=== PATIENT | female | born 1985 | race Caucasian/White ===

== ENCOUNTER 2017-05-17 12:54 | Emergency (ER) | payer OTHER ==
[2017-05-17 13:02] VITALS: RESP 20; TEMP 98.3
[2017-05-17] MEDS ORDERED: RX INFO: IV CONTRAST WAS GIVEN 1 EACH MISC MISCELLANE PRN ×2 (13:13→13:29)
[2017-05-17 13:36] LABS: Basophils % (A) 0 %; Eosinophils # (A) 0.2 k/uL (0-0.7); Eosinophils % (A) 4 %; HCT 43.3 % (34.0-46.0); HGB 13.8 gm/dL (11.4-16.0); Lymphocytes # (A) 1.6 k/uL (1.0-4.8); Lymphocytes % (A) 30 %; MCH 29.4 pg (25.0-35.0); MCHC 31.9 g/dL (31.0-37.0); MCV 92.1 fL (80.0-100.0); Mean Platelet Volume 7.4; Monocytes # (A) 0.4 k/uL (0-1.0); Monocytes % (A) 7 %; Neutrophils # (A) 3.2 k/uL (1.3-7.7); Neutrophils % (A) 58 %; Platelet Count 369 k/uL (150-450); RBC 4.71 m/uL (3.80-5.40); RDW 12.7 % (11.5-15.5); WBC 5.5 k/uL (3.8-10.6)
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
[2017-05-17 13:46] LABS: Granular Casts,Urine 29 /lpf (0); Mucus,Urine Occasional /hpf; RBC,Urine >182 /hpf (0-5); Squamous Epithelial Cell,Urine 7 /hpf (0-4); WBC,Urine 159 /hpf (0-5)
[2017-05-17 13:49] LABS: Appearance,Urine Bloody (Clear); Color,Urine Dark Red
[2017-05-17 13:53] LABS: Anion Gap 11 mmol/L; Blood Urea Nitrogen 18 mg/dL (7-17); Calcium 9.8 mg/dL (8.4-10.2); Carbon Dioxide 27 mmol/L (22-30); Chloride 102 mmol/L (98-107); Glucose 94 mg/dL (74-99); Potassium 4.9 mmol/L (3.5-5.1); Sodium 140 mmol/L (137-145)
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
[2017-05-17 15:05] VITALS: BP 122/55; PULSE 89
== END 2017-05-17 15:04 | disposition home or self-care (01) ==
LOC: EC 12:54
DX: S20.219A Contusion of unspecified front wall of thorax, initial encounter (principal); R10.9 Unspecified abdominal pain; R31.0 Gross hematuria; S40.212A Abrasion of left shoulder, initial encounter; F17.200 Nicotine dependence, unspecified, uncomplicated; V59.40XA Driver of pick-up truck or van injured in collision with unspecified motor vehicles in traffic accident, initial encounter; Y92.410 Unspecified street and highway as the place of occurrence of the external cause
CPT/HCPCS: 99284; 36415; 80048; 85025; 81001; 81025; 87086; 87077; 87186; 71260; 74177; Q9967

== ENCOUNTER 2021-05-27 05:28 | Inpatient (IN) | payer OTHER ==
[2021-05-27] MEDS ORDERED: LIDOCAINE 1% (PF) 10 MG/ML (30 ML SDV) SQ PRN (05:58)
[2021-05-27] MEDS ORDERED: OXYTOCIN 10 UNIT/ML 1 ML VIAL IM PRN (05:58)
[2021-05-27] MEDS ORDERED: TERBUTALINE 1 MG/ML VIAL SQ PRN (05:58)
[2021-05-27] MEDS ORDERED: CARBOPROST TROMETHAMINE 250 MCG/ML 1 ML AMP IM PRN (05:58)
[2021-05-27] MEDS ORDERED: METHYLERGONOVINE 0.2 MG/ML 1 ML AMP IM PRN (05:58)
[2021-05-27] MEDS ORDERED: AMPICILLIN 2,000 MG in SODIUM CHLORIDE 0.9% 100 ML IVPB ONE (06:00)
[2021-05-27] MEDS ORDERED: LACTATED RINGERS 1,000 ML IV SCH (06:00)
[2021-05-27] MEDS ORDERED: OXYTOCIN 30 UNITS/500 ML NS 30 UNIT in SALINE 1 500ML.BAG IV SCH ×2 (06:00→07:30)
--- NOTE | 2021-05-27 06:29 | P.HPOB ---
History of Present Illness H&P Date: 05/27/21 Chief Complaint: Contractions this patient is a 36-year-old 2 para 1 female estimated date of confinement 05/28/2021 estimated gestational age 39-6/7 weeks who presents to our hospital with complaints of contractions. Patient's care is with Dr. Varela and these records are unavailable to me. Patient was to deliver [facility] however apparently she called that facility and they said they do not have staph to deliver her there. She therefore presents here for evaluation. Patient states that she did receive some type of genetic counseling in the due to her age. In speaking her it sounds like she may have had some nonstress testing done. Most recent ultrasound she states was last week and she said the baby was around 7 pounds. She has a previous vaginal delivery with her first . She denies related complications. Review of Systems Genitourinary: Reports Menstruation: Reports amenorrhea Past Medical History Past Medical History: No Reported History History of Any Multi-Drug Resistant Organisms: None Reported Past Surgical History: No Surgical Hx Reported Additional Past Surgical History / Comment(s): Benign mass removed from neck Past Anesthesia/Blood Transfusion Reactions: No Reported Reaction Past Psychological History: No Psychological Hx Reported Smoking Status: Former smoker Past Alcohol Use History: None Reported Past Drug Use History: Marijuana Additional Drug Use History / Comment(s): Pt reports using marijuana in early - Past Family History Mother History Unknown: Yes Family Medical History: Diabetes Mellitus Medications and Allergies Home Medications Medication Instructions Recorded Confirmed Type Pnv,Calcium 72/Iron/Folic Acid 1 tab PO DAILY 05/27/21 05/27/21 History [ Plus Tablet] Allergies Allergy/AdvReac Type Severity Reaction Status Date / Time No Known Allergies Allergy Verified 05/17/17 13:02 Exam Vital Signs Temp Pulse Resp BP Pulse Ox 05/27/21 05:58 97.2 F L 75 16 135/77 100 Intake and Output 05/26/21 05/26/21 05/27/21 14:59 22:59 06:59 Other: Weight 90.265 kg - OBG Physical Exam Abdomen: bowel sounds normal, no diffuse tenderness, no bruit present, no guarding noted, no hepatomegaly, no splenomegaly, no mass Vulva: both: normal Vagina: normal moisture, no discharge Cervix: no lesion (Cervix is complete bulging bag.), no discharge Uterus: enlarged Assessment and Plan Assessment: This is a 36-year-old 2 para 1 female 39-6/7 weeks gestation active labor with no records here. At this point delivery is eminent so plan is antibiotic prophylaxis for unknown group B strep status and anticipate vaginal delivery patient will need a toxicology screen due to history of marijuana use and social science instructor consultation. (1) 40 weeks gestation of Current Visit: Yes Status: Acute Code(s): Z3A.40 - 40 WEEKS GESTATION OF SNOMED Code(s): 38395631 (2) Normal labor Current Visit: Yes Status: Acute Code(s): O80 - ENCOUNTER FOR FULL-TERM UNCOMPLICATED DELIVERY; Z37.9 - OUTCOME OF DELIVERY, UNSPECIFIED SNOMED Code(s): 78548790 (3) Elderly multigravida Current Visit: Yes Status: Acute Code(s): O09.529 - SUPERVISION OF ELDERLY MULTIGRAVIDA, UNSPECIFIED TRIMESTER SNOMED Code(s): 509760105 (4) Substance abuse affecting in first trimester, antepartum Current Visit: Yes Status: Acute Code(s): O99.321 - DRUG USE COMPLICATING , FIRST TRIMESTER SNOMED Code(s): 18769429
--- NOTE | 2021-05-27 06:36 | P.PN ---
Progress Note - Text Progress Note Date: 05/27/21 Review of her records which are now available show that her blood type is A positive, hepatitis B was negative, RPR is nonreactive, rubella is immune, Glucola was 118, HIV is nonreactive, group B strep was negative
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
[2021-05-27] MEDS ORDERED: diphenhydrAMINE 25 MG CAP PO PRN (07:24)
[2021-05-27] MEDS ORDERED: diphenhydrAMINE 50 MG/ML 1 ML VIAL IVP PRN (07:24)
[2021-05-27] MEDS ORDERED: BENZOCAINE/MENTHOL SPRAY 1 GM/SPRAY AEROSOL TOPICAL PRN (07:24)
[2021-05-27] MEDS ORDERED: LANOLIN CREAM 5 GM TUBE TOPICAL PRN (07:24)
[2021-05-27] MEDS ORDERED: SIMETHICONE 80 MG CHEWABLE PO PRN (07:24)
[2021-05-27] MEDS ORDERED: ZOLPIDEM 5 MG TAB PO PRN (07:24)
[2021-05-27] MEDS ORDERED: bisacodyL 10 MG SUPP RECTAL PRN (07:24)
[2021-05-27] MEDS ORDERED: HYDROCORTISONE 2.5% RECTAL CREAM 30 GM TUBE RECTAL PRN (07:24)
[2021-05-27] MEDS: IBUPROFEN 600 MG TAB PO PRN ×2 (08:11→15:27)
--- NOTE | 2021-05-27 08:48 | P.MSEPDOC ---
Presenting Problems - Arrival Data Date of Arrival on Unit: 05/27/21 Time of Arrival on Unit: 00:54 Mode of Transport: Wheelchair - Complaint OB-Reason for Admission/Chief Complaint: Possible Onset of Labor, Rule Out SROM Comment: Pt presents to triage with c/o contx that started around 0400 and are approx 6 min apart. Pt states she had a loose stool around 0430 and believes her water "may have broke" while on the toilet. Pt unsure whether fluid was clear Medical History - Information : 4 Para: 1 Term: 1 : 0 Abortions: Spontaneous or Elective: 2 Number of Living Children: 1 - Gestational Age Gestational Age by WILMAN (wks/days): 39 Weeks and 6 Days - History Complications: Smoker Comment: Pt reports marijuana use in early Review of Systems - Review of Systems Constitutional: No problems Breast: No problems ENT: No problems Cardiovascular: No problems Respiratory: No problems Gastrointestinal: No problems Genitourinary: No problems Musculoskeletal: No problems Neurological: No problems Skin: No problems Vital Signs - Temperature Temperature: 97.1 F Temperature Source: Temporal Artery Scan - Pulse Pulse Oximetery Pulse Rate: 68 Pulse Assessment Method: Automatic Cuff - Respirations Respiratory Rate: 16 Oxygen Delivery Method: Room Air - Blood Pressure Right Arm Blood Pressure: 120/61 Blood Pressure Mean: 80 Blood Pressure Source: Automatic Cuff Medical Screen Scoring - Cervical Exam Dilation (cm): 7.5 Effacement (%): 100 Station: -1 Membranes: Intact - Uterine Contractions Frequency From (mins): 1 Frequency To (mins): 4 Duration From (seconds): 50 Duration To (seconds): 70 Intensity: Strong Resting: Soft to palpation - Assessment - Baby A Baseline FHR: 140 Heart Rate - NICHD Category: Category I (Normal) Physician Notification - Physician Notified Physician Notified Date: 05/27/21 Physician Notified Time: 05:48 Physician: Timothy Johnson New Order Received: Yes - Notification Comment Comment: Dr. Johnson phoned into dept. Update provided re: Pt DOM receiving care with Dr. Christensen at [facility], presents to triage with c/o contx approx 6 min apart, hx of marijuana use early in but denies use at this time, SVE, FHR, contx pattern, small amount of vaginal bleeding noted with exam, GBS unknown and negative amnisure result. Orders received to admit pt. Dr. Johnson states he will be into dept shortly Maternal Triage Index - Maternal Triage Index Presenting for scheduled procedure w/no complaint: No - Stat/Priority 1 Stat Priority 1: No - Urgent/Priority 2 Urgent Priority 2: No - Prompt/Priority 3 Prompt Priority 3: Yes Criteria Met for Priority 3: Signs of active labor >34 weeks Disposition - Disposition OB Disposition: Admit, LDRP Suite I agree with the RN Medical Screening Exam: Yes Case reviewed; plan agreed upon as documented in EMR&OBIX.: Yes Diagnosis: ENCOUNTER FOR FULL-TERM UNCOMPLICATED DELIVERY
[2021-05-27] MEDS ORDERED: AMPICILLIN 1,000 MG in SODIUM CHLORIDE 0.9% 50 ML IVPB SCH (10:00)
[2021-05-27] MEDS: SENNOSIDES-DOCUSATE SODIUM 1 EACH TAB PO SCH ×2 (10:10→20:39)
[2021-05-27 14:52] LABS: Basophils % (A) 0 %; Eosinophils # (A) 0.1 k/uL (0-0.7); Eosinophils % (A) 1 %; HCT 35.7 % (34.0-46.0); HGB 11.8 gm/dL (11.4-16.0); Lymphocytes # (A) 1.3 k/uL (1.0-4.8); Lymphocytes % (A) 13 %; MCH 32.4 pg (25.0-35.0); MCHC 33.2 g/dL (31.0-37.0); MCV 97.6 fL (80.0-100.0); Mean Platelet Volume 8.7; Monocytes # (A) 0.6 k/uL (0-1.0); Monocytes % (A) 6 %; Neutrophils % (A) 78 %; Platelet Count 182 k/uL (150-450); RBC 3.66 m/uL (3.80-5.40); RDW 13.2 % (11.5-15.5); WBC 10.3 k/uL (3.8-10.6)
[2021-05-27 15:41] VITALS: RESP 18
[2021-05-27] MEDS: ACETAMINOPHEN TAB 325 MG TAB PO PRN (20:39)
[2021-05-28] MEDS: IBUPROFEN 600 MG TAB PO PRN (04:03)
--- NOTE | 2021-05-28 07:08 | P.PNOBGVD ---
Subjective - Subjective Patient reports: Reports appetite normal, Reports voiding normally, Reports pain well controlled, Reports ambulating normally : doing well Objective - Latest Vital Signs Latest vital signs: Vital Signs Temp Pulse Resp BP Pulse Ox 05/28/21 00:20 97.5 F L 70 18 101/62 97 05/27/21 15:42 98.1 F 67 18 112/68 97 05/27/21 12:00 97.2 F L 68 18 119/62 97 05/27/21 09:15 75 16 129/69 05/27/21 08:48 97.1 F L 68 16 120/61 05/27/21 08:37 97.9 F 63 16 114/66 05/27/21 08:07 60 16 120/77 05/27/21 07:52 74 16 116/72 05/27/21 07:37 68 16 120/61 05/27/21 07:22 68 16 120/61 - Exam Lungs: bilateral: normal Chest: Normal S1, Normal S2 Extremities: Present: normal Abdomen: Present: normal appearance, soft Uterus: Present: normal, firm - Labs Labs: Abnormal Lab Results - Last 24 Hours (Table) 05/27/21 Range/Units 14:44 RBC 3.66 L (3.80-5.40) m/uL Neutrophils # 8.0 H (1.3-7.7) k/uL Assessment and Plan Assessment: day #1. Patient is resting without complaints and wishes to go home. Vital signs are stable she is afebrile. Uterus is firm nontender she's having normal lochia. My impression is normal course. Plan is to continue routine care and discharge home later today (1) 40 weeks gestation of Current Visit: Yes Status: Acute Code(s): Z3A.40 - 40 WEEKS GESTATION OF SNOMED Code(s): 09669636 (2) Normal labor Current Visit: Yes Status: Acute Code(s): O80 - ENCOUNTER FOR FULL-TERM UNCOMPLICATED DELIVERY; Z37.9 - OUTCOME OF DELIVERY, UNSPECIFIED SNOMED Code(s): 12391204 (3) Elderly multigravida Current Visit: Yes Status: Acute Code(s): O09.529 - SUPERVISION OF ELDERLY MULTIGRAVIDA, UNSPECIFIED TRIMESTER SNOMED Code(s): 801300097 (4) Substance abuse affecting in first trimester, antepartum Current Visit: Yes Status: Acute Code(s): O99.321 - DRUG USE COMPLICATING , FIRST TRIMESTER SNOMED Code(s): 76029929
--- NOTE | 2021-05-28 07:12 | P.DS ---
Providers Date of admission: 05/27/21 05:47 Expected date of discharge: 05/28/21 Attending physician: Timothy Johnson Primary care physician: Stated None - Discharge Diagnosis(es) (1) 40 weeks gestation of Current Visit: Yes Status: Acute (2) Normal labor Current Visit: Yes Status: Acute (3) Elderly multigravida Current Visit: Yes Status: Acute (4) Substance abuse affecting in first trimester, antepartum Current Visit: Yes Status: Acute Hospital Course: Please see dictated H&P for intimate details of this patient's admission. Brief summary this is a 36-year-old 4 para 1 female estimated gestational age 39-6/7 weeks who presents to labor and delivery complaints of contractions. Patient's care is a another facility which is currently closed. Patient quickly goes on to have a vaginal delivery viable male . Please see dictated delivery note. day #1 patient without complaints she wishes to go home. Patient's felt be stable for discharge home follow up with Dr. Varela in 6 weeks Procedures: Normal vaginal delivery Patient Condition at Discharge: Good Plan - Discharge Summary New Discharge Prescriptions: New Ibuprofen [Motrin] 600 mg PO Q6HR PRN #30 tab PRN Reason: Pain No Action Pnv,Calcium 72/Iron/Folic Acid [ Plus Tablet] 1 tab PO DAILY Discharge Medication List Pnv,Calcium 72/Iron/Folic Acid [ Plus Tablet] 1 tab PO DAILY 05/27/21 [History] Ibuprofen [Motrin] 600 mg PO Q6HR PRN #30 tab 05/28/21 [Rx] Follow up Appointment(s)/Referral(s): Nicol Robison MD [REFERRING] - 6 Weeks Patient Instructions/Handouts: Vaginal Delivery (DC) Activity/Diet/Wound Care/Special Instructions: No intercourse or anything per vagina for 6 weeks. Please call if any fever, chills, excessive vaginal bleeding, and/or abdominal pain Discharge Disposition: HOME SELF-CARE
[2021-05-28] MEDS: ACETAMINOPHEN TAB 325 MG TAB PO PRN (08:07)
[2021-05-28] MEDS: SENNOSIDES-DOCUSATE SODIUM 1 EACH TAB PO SCH (08:07)
[2021-05-28 08:43] LABS: Basophils % (A) 1 %; Eosinophils # (A) 0.2 k/uL (0-0.7); Eosinophils % (A) 3 %; HCT 36.3 % (34.0-46.0); HGB 11.9 gm/dL (11.4-16.0); Lymphocytes # (A) 1.9 k/uL (1.0-4.8); Lymphocytes % (A) 27 %; MCH 32.5 pg (25.0-35.0); MCHC 32.8 g/dL (31.0-37.0); MCV 99.3 fL (80.0-100.0); Mean Platelet Volume 8.7; Monocytes # (A) 0.5 k/uL (0-1.0); Monocytes % (A) 7 %; Neutrophils # (A) 4.4 k/uL (1.3-7.7); Neutrophils % (A) 61 %; Platelet Count 166 k/uL (150-450); RBC 3.65 m/uL (3.80-5.40); RDW 13.2 % (11.5-15.5); WBC 7.2 k/uL (3.8-10.6)
[2021-05-28 08:56] VITALS: BP 110/58; PULSE 62; TEMP 98.1
== END 2021-05-28 12:19 | disposition home or self-care (01) | DRG 806 ==
LOC: FBPOP 05:28 → 4FBP 05:47
PROVIDERS: ADMIT Obstetrics & Gynecology; ATTEND Obstetrics & Gynecology
PROC: 10E0XZZ Delivery of Products of Conception, External Approach (ICD-10-PCS; principal; 2021-05-27)
PROC: 10907ZC Drainage of Amniotic Fluid, Therapeutic from Products of Conception, Via Natural or Artificial Opening (ICD-10-PCS; 2021-05-27)
PROC: 4A0HXCZ Measurement of Products of Conception, Cardiac Rate, External Approach (ICD-10-PCS; 2021-05-27)
DX: O70.0 First degree perineal laceration during delivery (principal); O99.324 Drug use complicating childbirth; Z37.0 Single live birth; O99.62 Diseases of the digestive system complicating childbirth; F12.90 Cannabis use, unspecified, uncomplicated; R19.7 Diarrhea, unspecified; Z3A.40 40 weeks gestation of pregnancy; Z83.3 Family history of diabetes mellitus; Z87.891 Personal history of nicotine dependence
CPT/HCPCS: 84112; 85025; 86850; 86900; 86901; 88307; 99213